=== PATIENT | female | born 1950 | race Caucasian/White ===

== ENCOUNTER 2020-02-14 14:01 | Outpatient (CLI) | payer MEDICARE, OTHER ==
--- NOTE | 2020-02-14 15:09 | XRAY Report ---
PROCEDURE: Cervical Spine 2 View INDICATIONS: WLL PUT IN TECHNIQUE: 3 view(s) of the cervical spine were acquired. COMPARISON: None. FINDINGS: Bones: No fractures or dislocations to the C7-T1 level. Prior anterior fusion at C5-6 level is seen with fusion hardware and intervertebral spacer placement. No gross hardware loosening or failure. St raightening and mild reversal of normal cervical lordosis is noted. Degenerative disc disease through out cervical spine is seen more prominent at C6-7 and C4-5 levels. The lateral masses of C1 appear in tact on the odontoid view. No suspicious bony lesions. Soft tissues: No prevertebral soft tissue swelling. IMPRESSION: Prior fusion of C5 and C6 vertebral bodies. No acute fracture or dislocation. No gross h ardware complication. Degenerative disc disease throughout cervical spine. Reviewed by: Nasir Mccullough MD on 02/14/2020 3:08 PM PDT Approved by: Nasir Mccullough MD on 02/14/2020 3:08 PM PDT Station ID: [id number]
== END 2020-02-14 14:02 | disposition home or self-care (01) ==
LOC: DI 14:01
PROVIDERS: ATTEND Neurological Surgery
DX: M47.812 Spondylosis without myelopathy or radiculopathy, cervical region (principal); M50.321 Other cervical disc degeneration at C4-C5 level; Z98.1 Arthrodesis status
CPT/HCPCS: 72040